=== PATIENT | female | born 1995 | race Caucasian/White ===

== ENCOUNTER → 2024-07-08 | Outpatient (CLI) | payer SELFPAY ==
[2024-07-08 16:05] LABS: Absolute Lymphocyte Count 2.31 X10^3/uL (0.83-4.51); Absolute Neutrophil Count 4.4 X10^3/uL (2.0-7.7); Basophil# 0.05 X10^3/uL; Basophil% 0.7 % (0-1); Eosinophil# 0.14 X10^3/uL; Eosinophils% 1.8 % (0-5); Hemoglobin 11.6 g/dL (12.0-15.0); Lymphocyte # 2.31 X10^3/ul (0.83-4.51); Lymphocyte % 30.4 % (19-41); Mean Corp Hgb Conc 32.2 g/dL (32-36); Mean Corpuscular Hgb 29.6 pg (27.0-32.0); Mean Corpuscular Volume 91.8 fL (81-99); Mean Platelet Vol. 9.3 fl (6.2-12.0); Monocyte% 9.2 % (0-10); NRBC Flagged by Analyzer 0 % (0-5); Neutrophil # 4.38 X10^3/uL (2.7-7.7); Neutrophil % 57.6 % (47-70); Platelet Count 281 K/mm3 (150-450); RBC Distribution Width CV 13.6 % (11.6-14.6); RBC Distribution Width SD 46.5 fl (35.1-43.9); Red Blood Count 3.92 M/mm3 (4.2-5.4); White Blood Count 7.6 K/mm3 (4.4-11.0)
[2024-07-08 16:20] LABS: Amphetamine Urine VISTA NEGATIVE (<1000 ng/mL); Barbiturate Urine VISTA NEGATIVE (< 200 ng/mL); Benzodiazepine Urine VISTA NEGATIVE (< 200 ng/mL); Cocaine Urine VISTA NEGATIVE (< 300 ng/mL); Ecstacy Urine VISTA NEGATIVE (< 500 ng/mL); Methadone Urine VISTA NEGATIVE (< 300 ng/mL); PCP Urine VISTA NEGATIVE (< 25 ng/mL); THC Urine VISTA POSITIVE (< 50 ng/mL); Vista UDS pH Range 6
[2024-07-08 16:52] LABS: HIV - WCH Non-Reactive (Nonreactive); Hepatitis B Surface Antigen Non-Reactive (Nonreactive); Hepatitis C Antibody Non-Reactive (Nonreactive); Rubella IgG Reactive (Nonreactive); Syphilis Antibodies Non-reactive
[2024-07-12 18:08] LABS: Chlamydia By Nucleic Acid AMP Negative (Negative); Gonococcus By Nucleic Acid AMP Negative (Negative)
== END | disposition home or self-care (01) ==
LOC: WOBLAB 14:07
PROVIDERS: Referring Provider Advanced Practice Midwife; Visit Provider Advanced Practice Midwife
DX: O99.320 Drug use complicating pregnancy, unspecified trimester (principal); F19.19 Other psychoactive substance abuse with unspecified psychoactive substance-induced disorder; Z3A.00 Weeks of gestation of pregnancy not specified
CPT/HCPCS: 36415; 80307; 85025; 86703; 86762; 86780; 86803; 86850; 86900; 86901; 87077; 87086; 87088; 87186; 87340; 87491; 87591

== ENCOUNTER → 2024-09-27 | Outpatient (CLI) | payer SELFPAY ==
--- NOTE | 2024-09-27 07:52 | US_ITS ---
STUDY: SECOND AND THIRD TRIMESTER OBSTETRICAL ULTRASOUND REASON FOR EXAM: Female, 29 years old Anatomy Ultrasound LMP: May 04, 2024. TECHNIQUE: Transabdominal and Transvaginal TECHNICAL QUALITY: Adequate. PRIOR ULTRASOUND: None. FINDINGS: There is a single intrauterine fetus. The fetus is in a breech presentation. There is demonstrated cardiac activity with a heart rate of 145 bpm. There is a normal amniotic fluid volume. The largest amniotic fluid pocket measures 5.5 cm. The amniotic fluid index (KEITH) is within normal limits. The placenta is anterior in location and is not low lying. There are Grade 0 placental changes. The cervix measures 5 cm in length. The adnexal regions are not visualized. BIOMETRY: BPD: 4.6 cm: 19 weeks, 6 days: 14% HC: 18 cm: 20 weeks, 3 days: 23% AC: 15.84 cm: 21 weeks, 0 days: 47% FL: 3.26 cm: 20 weeks, 1 days: 19% CI: 72% FL/BPD: 71% FL/HC: 18% FL/AC: 21% HC/AC: 1.14 age by current US: 20 weeks, 3 days. LUISITO by current US: February 11, 2025. Estimated weight: 316 grams, +/- 54 grams, 29 %. Age by LMP: 20 weeks, 6 days. LUISITO by LMP: February 08, 2025. ANATOMY: Gender: Male Cranium: Normal lateral ventricles. Normal choroid plexus. Normal cerebellum. Normal cisterna magna. Normal face, nose and lips. Chest: Normal 4-chamber heart. Abdomen/Pelvis: Normal diaphragm. Normal stomach. Normal abdominal wall. Normal cord insertion. Normal 3 vessel cord. Normal kidneys. Normal bladder. Spine: Normal cervical spine. Normal thoracic spine. Normal lumbar spine. Normal sacrum. Extremities: Normal bilateral upper extremities. Normal bilateral lower extremities. IMPRESSION: Single live intrauterine gestation with mean gestational age of 20 weeks and 3 days. Electronically Signed: Angel Nicole MD at 15:07 EST , STUDY: FIRST TRIMESTER OBSTETRICAL ULTRASOUND REASON FOR EXAM: Female, 29 years old. Cervical length. LMP: May 04, 2024 TECHNIQUE: Transvaginal TECHNICAL QUALITY: Adequate. PRIOR ULTRASOUND: None. FINDINGS: The cervical length measures 5 cm. US/OB Anatomy w/ Transvaginal IMPRESSION: Cervical length measures 5 cm. Electronically Signed: Angel Nicole MD at 15:08 EST ,
== END | disposition home or self-care (01) ==
PROVIDERS: Referring Provider Obstetrics & Gynecology; Visit Provider Obstetrics & Gynecology
DX: O09.90 Supervision of high risk pregnancy, unspecified, unspecified trimester (principal); Z3A.00 Weeks of gestation of pregnancy not specified
CPT/HCPCS: 76805; 76817

== ENCOUNTER → 2024-11-08 | Outpatient (CLI) | payer SELFPAY ==
[2024-11-08 17:15] LABS: Absolute Lymphocyte Count 2.93 X10^3/uL (0.83-4.51); Absolute Neutrophil Count 7.6 X10^3/uL (2.0-7.7); Basophil# 0.06 X10^3/uL; Basophil% 0.5 % (0-1); Eosinophil# 0.25 X10^3/uL; Eosinophils% 2.1 % (0-5); Hematocrit 32.1 % (37-47); Hemoglobin 10.4 g/dL (12.0-15.0); Lymphocyte # 2.93 X10^3/ul (0.83-4.51); Lymphocyte % 24.9 % (19-41); Mean Corp Hgb Conc 32.4 g/dL (32-36); Mean Corpuscular Hgb 29.5 pg (27.0-32.0); Mean Corpuscular Volume 90.9 fL (81-99); Mean Platelet Vol. 9.9 fl (6.2-12.0); Monocyte# 0.81 X10^3/uL; Monocyte% 6.9 % (0-10); NRBC Flagged by Analyzer 0 % (0-5); Neutrophil # 7.62 X10^3/uL (2.7-7.7); Neutrophil % 64.8 % (47-70); Platelet Count 266 K/mm3 (150-450); RBC Distribution Width CV 13.3 % (11.6-14.6); RBC Distribution Width SD 43.8 fl (35.1-43.9); Red Blood Count 3.53 M/mm3 (4.2-5.4); White Blood Count 11.8 K/mm3 (4.4-11.0)
[2024-11-08 21:33] LABS: Glucose Challenge Gest 1H 50g 120 mg/dL; HIV Nonreactive (Nonreactive); Syphilis Antibodies Nonreactive (Nonreactive)
[2024-11-08 21:47] LABS: Amphetamine Urine NEGATIVE (<1000 ng/mL); Barbiturate Urine NEGATIVE (< 200 ng/mL); Benzodiazepine Urine NEGATIVE (< 200 ng/mL); Buprenorphine Urine NEGATIVE (< 200 ng/mL); Cocaine Urine NEGATIVE (< 300 ng/mL); Fentanyl, Urine NEGATIVE; Methadone Urine NEGATIVE (< 300 ng/mL); Opiates Urine NEGATIVE (< 300 ng/mL); Oxycodone, Urine NEGATIVE (< 100 ng/mL); PCP Urine NEGATIVE (< 25 ng/mL); THC Urine PREUMTIVE POSITIVE (< 50 ng/mL)
== END | disposition home or self-care (01) ==
LOC: BWCLAB 15:49
PROVIDERS: Nurse Practitioner Women's Health; Referring Provider Advanced Practice Midwife; Visit Provider Advanced Practice Midwife
DX: O09.90 Supervision of high risk pregnancy, unspecified, unspecified trimester (principal); F19.19 Other psychoactive substance abuse with unspecified psychoactive substance-induced disorder; Z3A.00 Weeks of gestation of pregnancy not specified; Z13.1 Encounter for screening for diabetes mellitus; O99.320 Drug use complicating pregnancy, unspecified trimester
CPT/HCPCS: 36415; 80307; 82950; 85025; 86703; 86780

== ENCOUNTER → 2025-01-27 | Outpatient (CLI) | payer SELFPAY ==
--- NOTE | 2025-01-27 18:06 | US_ITS ---
PROCEDURE: OB LIMITED WITH BIOMETRICS 01/27/2025 REASON FOR EXAM: GROWTH TECHNIQUE: High resolution obstetric ultrasound performed using a 2D transducer. Standard views obtained, including biometry, anatomy survey, and Doppler studies. COMPARISON: None FINDINGS Number: 1 Position: Cephalic Placental Position: Anterior Placental Abnormalities: No definite evidence of previa. The cervix to placenta distance was not measured by the technologist. DIMENSIONS: Biparietal Diameter: 8.4 cm/33 weeks 5 days +/-22 days/0.29 percentile Head Circumference: 31.0 cm/34 weeks 4 days +/-21 days/0.16 percentile Abdominal Circumference: 32.3 cm/36 weeks 2 days +/-21 days/14.56 percentile Femur Length: 6.9 cm/35 weeks 2 days +/-21 days/2.61 percentile ESTIMATED WEIGHT: 2729 g +/-409 g ESTIMATED WEIGHT PERCENTILE (24+ weeks): 9.84% ESTIMATED GESTATIONAL AGE: Baseline: 38 weeks 2 days By Ultrasound: 34 weeks 5 days ESTIMATED DATE OF DELIVERY: Baseline: 02/08/2025 By Ultrasound: 03/05/2025 BIOPHYSICAL ASSESSMENT: Amniotic Fluid Volume: Subjectively normal. Amniotic Fluid Index: 10.5 (8-24 cm normal range) Cardiac Motion: 129 beats per minute (average) Trunk and Limb Motion: Not documented by technologist MATERNAL ANATOMY: Adnexa: Both maternal ovaries are visualized and unremarkable. Cervical Length (if measured): Not visualized per technologist report This exam does not specifically evaluate the anatomy. US/OB Limited With Biometrics IMPRESSION: 1. Single living intrauterine with estimated gestational age of 34 w eeks 5 days by ultrasound, which is discordant with the estimated gestational age of 38 weeks 2 days by LMP. 2. Estimated weight percentile of 9.84%, concerning for intrauterine will wth restriction. Incorrect dates could also account for this finding. Recommend further evaluation, to include Doppler ult rasound evaluation of the umbilical artery. 3. Normal KEITH of 10.5 cm. Of note, comparison exams were not made available to the Radiologist at the [place] [facility] of this dictation. Reading Location: [facility]
== END | disposition home or self-care (01) ==
PROVIDERS: Visit Provider Obstetrics & Gynecology
DX: Z34.93 Encounter for supervision of normal pregnancy, unspecified, third trimester (principal)
CPT/HCPCS: 76816

== ENCOUNTER 2025-02-01 13:25 | Inpatient (IN) | payer SELFPAY ==
[2025-02-01 13:37] VITALS: BP 141/77; PULSE 80
[2025-02-01 14:12] VITALS: BMI 27.8
--- NOTE | 2025-02-01 14:17 | PCM.HP.OB ---
HPI - General General Date of Admission: 02/01/25 Date of Service: 02/01/25 HPI Narrative ABAD PEOPLES, is a 29 F 39.0 weeks gestation who presents to unit for IOL for IUGR per US. EFW at 9%. GBS pos. Maternal Data Information LUISITO Calculator Estimated Delivery Date Method Current WG Current Estimate 02/08/25 LMP (Uncertain) 39w 0d Other Estimates 02/06/25 Ultrasound #1 39w 2d Final LUISITO: 02/08/25 Final LUISITO Source: US >20 weeks Gestational age: 39.0 PFSH PFSH Medical History (Updated 02/01/25 @ 16:05 by Diana Avitia CNM) History of prior with IUGR Home Medications ?Medication ?Instructions ?Recorded ?Last Taken ?Type docosahexaenoic acid 200 mg mg PO supplement 06/25/24 Unknown History capsule ( DHA) ondansetron 4 mg disintegrating 4 mg PO Q8H PRN nausea and 11/08/24 02/01/25 Rx tablet vomiting #30 tabs famotidine 20 mg tablet (Pepcid) 20 mg PO QHS antacid #30 tabs 01/24/25 01/31/25 Rx calcium phosphate,dibasic 77 tab PO vitamin 02/01/25 01/31/25 History mg-vitamin D3 400 unit tablet omega 6-feh-yhd-fish oil 1,200 mg cap PO supplement 02/01/25 01/31/25 History (144 mg-216 mg) capsule (Fish Oil) Allergy/AdvReac Type Severity Reaction Status Date / Time No Known Allergies Allergy Verified 02/01/25 13:27 Family History Grandmother Colon cancer Grandfather Brain cancer Surgical History H/O wisdom tooth extraction Social History adopted: No household members: significant other current occupational status: employed 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 current occupational exposures/hazards: No pets and animals: Yes pets and animals: farm animals history of recent travel: Yes ( - May 2024) sexually active: Yes Smoking Status: Former smoker quit date: 12/15/23 alcohol intake: former year quit: 2022 details: December 14 substance use type: marijuana and other well-balanced diet: daily or most days caffeine: Yes Type: coffee eating out: rarely or never during the past year weight has: remained stable what type of physical activity do you participate in: none garcia/confucianist: Church seatbelt use: sometimes do you feel safe at home: Yes additional social history: BF: Dave - [employer] ([employer]) History 1 Elective abortions Hx Para 0 Spontaneous abortions Hx # Term Pregnancies Ectopic pregnancies Hx # Pregnancies Multiple births # of living children 0 Visit Details Expected Delivery Route/Plan Labor Preferences- CB/BF classes: discussed labor support person: Dave labor intervention preferences: minimal pain management options preferred: none cut cord/dad catch: yes : yes PP control planned: [] discussed possible routes of delivery and associated risks: [] special requests: [] Plans Covid status: [] Flu vaccine: [] Tdap vaccine: declined Rhogam: NA LARC form signed: yes movement and labor precautions reviewed. Problem list reviewed and updated with the most current plan of care details and appropriate orders placed. Relevant counseling for the gestational age provided. Continue routine care and follow up unless otherwise noted in visit notes/problem list details OB Flowsheet Initial Weight: 119 lb Date <del>?</del> EGA Weight BP Urine Prot <del>?</del> Glucose FHR FuHt Pres Dilation <del>?</del> Effaced St Visit Note 07/08/24 <del>?</del> 9w 2d 119 lb (+0 oz) 108/68 <del>?</del> 163 <del>?</del> KW- CRL cons with dates. Declines NIPT today 08/09/24 <del>?</del> 13w 6d 126 lb 2 oz (+7 lb 2 oz) 114/74 Negative <del>?</del> Negative 145 <del>?</del> SM- no vb cramping 09/27/24 <del>?</del> 20w 6d 140 lb 4 oz (+21 lb 4 oz) 117/74 Negative <del>?</del> Negative 144 <del>?</del> JV- no lof, vaginal bleeding, or cramping. anatomy scan was done today and pending. 10/25/24 <del>?</del> 24w 6d 142 lb 8 oz (+23 lb 8 oz) 107/69 Negative <del>?</del> Negative 125 24 <del>?</del> KW- no vb/lof/ctx. good fm. desires fresh test. 28 week labs discussed. 11/08/24 <del>?</del> 26w 6d 144 lb 4 oz (+25 lb 4 oz) 108/72 Negative <del>?</del> Negative 146 26 <del>?</del> MH-No VB. Good FM. Larc done. 28 wk labs pending. Still having some nausea, zofran refilled. 11/29/24 <del>?</del> 29w 6d 148 lb 4 oz (+29 lb 4 oz) 105/70 Negative <del>?</del> Negative 123 29 <del>?</del> JV- declines tdap, still vomiting daily. but gaining weight. 12/13/24 <del>?</del> 31w 6d 149 lb 4 oz (+30 lb 4 oz) 101/66 Negative <del>?</del> Negative 130 32 <del>?</del> KW- no vb/lof/ctx. good fm. wrist splints for wrist pain. 12/28/24 <del>?</del> 34w 0d 149 lb 2 oz (+30 lb 2 oz) 105/67 Negative <del>?</del> Negative 125 34 <del>?</del> SM- no vb lof good fm no reugalr ctx reviewed precautions and preferences 01/10/25 <del>?</del> 35w 6d 149 lb (+30 lb) 106/72 Negative <del>?</del> Negative 130 36 <del>?</del> KW- GBS in urine. no vb/lof/ctx. good fm. 01/17/25 <del>?</del> 36w 6d 150 lb (+31 lb) 109/73 Negative <del>?</del> Negative 130 37 <del>?</del> KW- no vb/lof/ctx. good fm. declines vag exam today. 01/24/25 <del>?</del> 37w 6d 152 lb 2 oz (+33 lb 2 oz) 113/75 Negative <del>?</del> Negative 135 35 <del>?</del> JV- patient declines pelvic exam. ordering growth scan for position, fluid, and growth. NST FHR Rate Baby A Baseline: 130 Variability:: Moderate Accelerations:: 15 x 15 Decelerations:: None NST Reactive:: Yes FHR Category:: Category I Uterine Activity:: irregular ROS Constitutional Constitutional: Denies change in weight, fatigue, fever(s), headache(s), poor appetite or weakness Eyes Eyes: Denies blurry vision, change in vision, floaters, seeing flashes or spots in vision ENT HEENT: Denies dizziness, headache(s), loss taste/smell or sore throat Cardiovascular Cardiovascular: Denies chest pain, dizziness, dyspnea, irregular heart rhythm, lightheadedness, palpitations or rapid heart rate Respiratory/Chest Respiratory/Chest: Denies change in mental status, chest tightness, cough, dyspnea or breast pain Gastrointestinal Gastrointestinal: Denies anorexia, chewing difficulty, constipation, diarrhea or weight changes Genitourinary Genitourinary: Denies difficulty urinating, dysuria, flank pain, genital pain, urinary frequency or urinary urgency Musculoskeletal Musculoskeletal: Denies back pain, difficulty walking, extremity pain, joint pain, muscle cramps or muscle weakness Integumentary Integumentary: Denies lesions or unusual bruising Neurologic Neurologic: Denies abnormal movements, abnormal speech, dizziness, numbness, seizure-like activity, syncope or weakness Psychiatric Psychiatric: Denies behavioral changes, change in appetite, confusion, depression, homicidal ideation, suicidal ideation or suicidal thoughts Endocrine Endocrinology: Denies excessive sweating, polydipsia or polyuria Hematologic/Lymphatic Hematologic/Lymphatic: Denies anemia Allergic/Immunologic Allergic/Immunologic: Denies itchy eyes, lip swelling, throat swelling, tongue swelling or wheezing Vital Signs Vital Signs Vital Signs: 02/01/25 13:37 02/01/25 13:37 Pulse Rate 80 Blood Pressure 141/77 H BP Systolic 141 BP Diastolic 77 Weight Weight: 152 lb 8 oz Body Mass Index (BMI) 27.8 Physical Exam Const alert, oriented x3 and no apparent distress General Appearance: cooperative Orientation / Consciousness: awake HEENT normocephalic Neck full ROM Lymph Lymphatic: no lymphadenopathy noted Chest inspection of chest normal Resp normal respiratory effort and normal air movement Effort and Inspection: able to speak in complete sentences and symmetric chest movement GI soft to palpation and non-tender Inspection: gravid Palpation: soft; Negative for tender external exam normal Back/Spine normal to inspection Extremity normal to inspection and full ROM Skin no rashes or lesions noted Psych mental status grossly normal Appearance: grossly normal Speech: normal speech Labs Labs Labs: Blood Type A POSITIVE Antibody Screen NEGATIVE Hct 27.3 % (37-47) L Hgb 8.7 g/dL (12.0-15.0) L Obstetrics Ultrasound Syphilis Total Ab Nonreactive (Nonreactive) Rubella IgG Antibody Reactive (Nonreactive) Hep Bs Antigen Non-Reactive (Nonreactive) Hepatitis C Antibody Non-Reactive (Nonreactive) Chlamydia DNA (CARLY) Negative (Negative) N.gonorrhoeae DNA (CARLY) Negative (Negative) HIV 1&2 Antibody Nonreactive (Nonreactive) Glucose 1 Hr 50 gm 120 mg/dL Assessment & Plan (1) Encounter for induction of labor: COMMENT: IUGR PLAN: Patient presents IOL, plan management for with cytotec/braun/pitocin/AROM. Pain management: plans epidural. GBS positive-PCN. Management of any complications: see list I have reviewed the [facility] and made any clinically relevant updates. Dr Rodriguez aware of assessment/plan and admission. agrees with above (2) Uterine size date discrepancy: (3) Anemia affecting : COMMENT: OTC iron (4) GBS (group B streptococcus) UTI complicating : QUALIFIERS: Trimester: second trimester Qualified Code(s): O23.42 - Unspecified infection of urinary tract in , second trimester; B95.1 - Streptococcus, group B, as the cause of diseases classified elsewhere COMMENT: not high enough to treat. will need treated in labor (5) Supervision of high-risk : QUALIFIERS: Trimester: second trimester Qualified Code(s): O09.92 - Supervision of high risk , unspecified, second trimester COMMENT: PRR, , LUISITO 02/08/25, magdi mayes BF: Dave (6) : QUALIFIERS: Weeks of gestation: 37 weeks Qualified Code(s): Z3A.37 - 37 weeks gestation of COMMENT: nl anatomy, Discussed genetic/carrier testing - declines (7) Drug use: COMMENT: Marijuana - Last Use: April 2024, Not currently using Informed pt of random drug testing during , positive at [facility]. 11/08/24: Charges/Coding Multi Select Codes Urinary/Genital Urinary/Genital CPT Codes: No Charge
[2025-02-01 14:45] LABS: Absolute Lymphocyte Count 2.06 X10^3/uL (0.83-4.51); Absolute Neutrophil Count 6.8 X10^3/uL (2.0-7.7); Basophil# 0.06 X10^3/uL; Basophil% 0.6 % (0-1); Eosinophil# 0.12 X10^3/uL; Eosinophils% 1.2 % (0-5); Hematocrit 27.3 % (37-47); Hemoglobin 8.7 g/dL (12.0-15.0); Lymphocyte # 2.06 X10^3/ul (0.83-4.51); Lymphocyte % 21.4 % (19-41); Mean Corp Hgb Conc 31.9 g/dL (32-36); Mean Corpuscular Hgb 25.5 pg (27.0-32.0); Mean Corpuscular Volume 80.1 fL (81-99); Mean Platelet Vol. 10.8 fl (6.2-12.0); Monocyte# 0.57 X10^3/uL; Monocyte% 5.9 % (0-10); NRBC Flagged by Analyzer 0 % (0-5); Neutrophil # 6.81 X10^3/uL (2.7-7.7); Neutrophil % 70.7 % (47-70); Platelet Count 246 K/mm3 (150-450); RBC Distribution Width CV 14.6 % (11.6-14.6); RBC Distribution Width SD 42.8 fl (35.1-43.9); Red Blood Count 3.41 M/mm3 (4.2-5.4); White Blood Count 9.6 K/mm3 (4.4-11.0)
[2025-02-01] MEDS: miSOPROStol 25 MCG TABLET VAGINAL ×2 (15:54→20:06)
[2025-02-01 15:56] LABS: Syphilis Antibodies Nonreactive (Nonreactive)
[2025-02-01 16:29] VITALS: PULSE 69; O2SAT 98
[2025-02-01 17:07] LABS: Amphetamine Urine NEGATIVE (<1000 ng/mL); Barbiturate Urine NEGATIVE (< 200 ng/mL); Benzodiazepine Urine NEGATIVE (< 200 ng/mL); Cocaine Urine NEGATIVE (< 300 ng/mL); Methadone Urine NEGATIVE (< 300 ng/mL); Opiates Urine NEGATIVE (< 300 ng/mL); PCP Urine NEGATIVE (< 25 ng/mL); THC Urine PRESUMPTIVE POSITIVE (< 50 ng/mL)
[2025-02-01] MEDS: Mag Hydrox/Al Hydrox/Simeth 30 ML UDC PO (19:23)
[2025-02-01 20:03] VITALS: BP 123/97; PULSE 65; RESP 16; TEMP 37.1
[2025-02-01] MEDS: Lactated Ringers 1,000 ML 50 ML IV (22:10)
[2025-02-01] MEDS: Penicillin G Pot 5,000,000 UNITS in 0.9% Normal Saline (100mL MB+) 100 ML 150 UNITS IV (22:10)
[2025-02-01] MEDS: LACTATED RINGERS 500 ML 999 ML IV (22:53)
[2025-02-01] MEDS: proCHLORPERazine 10 MG/2 ML Vial IV (23:16)
[2025-02-01] MEDS: 0.9% Saline Lock 10 ML Syringe IV (23:16)
[2025-02-02] VITALS (62 sets, daily range): BP systolic 110–172; BP diastolic 62–100; PULSE 56–107; RESP 15–16; TEMP 36.3–37.1; O2SAT 89–100
[2025-02-02] MEDS: miSOPROStol 25 MCG TABLET VAGINAL ×2 (00:08→04:07)
[2025-02-02] MEDS: Penicillin G 3,000,000 Units 50 ML 100 UNITS IV ×5 (02:12→20:01)
[2025-02-02] MEDS: 0.9% Saline Lock 10 ML Syringe IV ×4 (02:12→20:24)
[2025-02-02] MEDS: Ondansetron 4 MG/2 ML Vial IV ×4 (06:28→23:36)
[2025-02-02] MEDS: 0.9% Normal Saline Single 100 ML IV.SOLN. INTRA-UTER (07:30)
[2025-02-02] MEDS: Lactated Ringers 1,000 ML 999 ML IV ×2 (07:48→23:33)
--- NOTE | 2025-02-02 08:30 | PCM.PN.BLA ---
Progress Note Progress Note patient is sitting up in bed. She consents to a braun balloon current tracing: FHT: Moderate variability reactive no decelerations category I tracing [place]: uterine irritability, unable to count actual Contractions -/-2, braun balloon placed and inflated with 30 cc A/P: patient wants epidural- start bolus now plan for pit then arom when ready
[2025-02-02] MEDS: fentaNYL-bupivacaine (epidural) 100 ML BAG EPIDURAL ×4 (08:52→22:47)
[2025-02-02] MEDS: Oxytocin 15 Units/NS 250ml 15 UNITS/250 ML IV.SOLN 2 UNITS IV (09:05)
[2025-02-02] MEDS: Mag Hydrox/Al Hydrox/Simeth 30 ML UDC PO ×2 (09:06→20:13)
[2025-02-02] MEDS: Lactated Ringers 1,000 ML 200 ML IV ×2 (12:53→17:29)
--- NOTE | 2025-02-02 13:21 | PN_ITS ---
Progress Note patient is comfortable with epidural. she consents to AROM. current tracing: FHT: 145 Moderate variability reactive, occasional variable and late decelerations category II tracing [place]: irregular Contractions, not picking up consistently cx : /-2, thick meconium stained fluid present reviewed tracing abnormalities since last note: decels are new A/P: IUGR @ 39 weeks 1 day if position change does not show improvement in contraction frequency or if variable decelerations become regular will recommend IUPC with amnioinfusion.
[2025-02-02] MEDS: LACTATED RINGERS 500 ML 999 ML IV ×2 (18:54→21:16)
[2025-02-02] MEDS: proCHLORPERazine 10 MG/2 ML Vial IV (20:24)
--- NOTE | 2025-02-02 21:06 | PCM.PN.BLA ---
Progress Note patient is painful constantly on the left hip. Side lying release and other position changes not helping. Anesthesia paged. current tracing: FHT: Moderate variability reactive no decelerations- currently category I tracing [place]: q2min Contractions cx: /0 FSE and IUPC in place Sharon from anesthesia in and notices that the epidural has pulled loose and will replace the epidural A/P: plan to replace epidural and then try side lying release
[2025-02-02] MEDS: Amnioinfusion- 0.9% NS 1,000 ML IV.SOLN. 1000 ML INTRA-UTER (21:55)
[2025-02-02] MEDS: Methylergonovine 0.2 MG/ML Ampul IM (23:19)
[2025-02-02] MEDS: miSOPROStol 200 MCG Tablet 1000 MCG RC (23:21)
[2025-02-02] MEDS: Carboprost Tromethamine 250 MCG/ML Ampul IM (23:23)
[2025-02-02] MEDS: Oxytocin 15 Units/NS 250ml 15 UNITS/250 ML IV.SOLN 999 UNITS IV (23:27)
[2025-02-02] MEDS: Cefazolin 2 GM in 0.9% Normal Saline (100mL Bag) 100 ML IV (23:43)
[2025-02-02] MEDS: TRANEXAMIC ACID 1,000 MG in 0.9% Normal Saline (100mL Bag) 100 ML 440 MG IV (23:45)
[2025-02-02 23:49] LABS: Absolute Lymphocyte Count 1.34 X10^3/uL (0.83-4.51); Absolute Neutrophil Count 13.8 X10^3/uL (2.0-7.7); Basophil# 0.02 X10^3/uL; Basophil% 0.1 % (0-1); Eosinophil# 0.01 X10^3/uL; Eosinophils% 0.1 % (0-5); Hematocrit 25.4 % (37-47); Hemoglobin 8.2 g/dL (12.0-15.0); Lymphocyte # 1.34 X10^3/ul (0.83-4.51); Lymphocyte % 8.3 % (19-41); Mean Corp Hgb Conc 32.3 g/dL (32-36); Mean Corpuscular Hgb 25.4 pg (27.0-32.0); Mean Corpuscular Volume 78.6 fL (81-99); Mean Platelet Vol. 10.6 fl (6.2-12.0); Monocyte# 0.83 X10^3/uL; Monocyte% 5.1 % (0-10); NRBC Flagged by Analyzer 0 % (0-5); Neutrophil # 13.81 X10^3/uL (2.7-7.7); Neutrophil % 85.7 % (47-70); Platelet Count 224 K/mm3 (150-450); RBC Distribution Width CV 14.6 % (11.6-14.6); Red Blood Count 3.23 M/mm3 (4.2-5.4); White Blood Count 16.1 K/mm3 (4.4-11.0)
--- NOTE | 2025-02-02 23:54 | PLAC_PTH ---
PATIENT: ABAD PEOPLES LOC: [facility] U#:[id number] AGE/SX: 29/F ROOM: WP016 RE02/01/[address]: Dr. Ting Espinoza DO : 1995 BED: 1 DIS: 02/04/2025 SPEC #: [id number] RECD: 02/03/25 00:11 STATUS: ROCAEL OSCAR #: [id number] DAO: 02/02/25 23:[address]: Ting Espinoza DEPT: SURGICAL PATHOLOGY RECD BY: Terrance Niño ENTERED: 02/03/25 07:33 SP TYPE: PLACENTA OT DR: No Primary Care Phys Tissues: A - Placenta, NOS Procedures: Surgery Specimen Level V HEADER OPERATION: Delivery PRE-OP DIAGNOSIS: IUGR TISSUE SUBMITTED: A- Placenta MICROSCOPIC DIAGNOSIS A. Placenta, delivery: * Eccentrically inserted and trivascular umbilical cord without active inflammation * Marginally inserted membranes without active inflammation * Mature (third trimester) placenta without active inflammation and with a transmural area of infarction with thinning of the placental disk MICROSCOPIC DESCRIPTION Slides are reviewed. GROSS DESCRIPTION A. Received in formalin in a container labeled with the patient's name, date of , and with no further designation is a 19.3 x 18.0 cm douglas and discoid placenta with a thickness ranging from 0.6 to 3.2 cm. There is a trimmed weight of 615.8 g. The eccentrically located mora-yellow umbilical cord has 3 vessels and is 55 cm in length X 1.2 cm in diameter. There are approximately 2 coils per 10 cm. The mora membranes exhibit a 100% marginal insertion point. The surface is burris-blue with thin, prominent vasculature. The maternal surface has red-burris cotyledons that appear predominantly complete with an abundance of scattered calcifications. There is an ill-defined, 12.0 x 3.0 x 2.4 cm area of red-brown, layered, and adherent blood clot material at the periphery. The hemorrhagic area and scattered calcifications appear to comprise approximately 10% of the maternal surface. Serial sections have a hemorrhagic area with white-mora, rubbery surfaces. Sectioning of the thin area with a thickness of approximately 0.6 cm exhibits rubbery and focally calcified surfaces. The remaining surfaces are maroon and spongy. Manufacturing Manager sections:A1. Umbilical cord and membrane rollA2. Full-thickness section with scattered calcificationsA3. Full-thickness section with rubbery and hemorrhagic focusA4. Full-thickness sections x 2 area of thin placental tissueA5. Manufacturing Manager full-thickness section [facility] 02-03-2025 CPT:94748
--- NOTE | 2025-02-02 23:55 | OB.VAGDELI_ITS ---
Assessment & Plan (1) Encounter for induction of labor: COMMENT: IUGR (2) GBS (group B streptococcus) UTI complicating : QUALIFIERS: Trimester: second trimester Qualified Code(s): O23.42 - Unspecified infection of urinary tract in , second trimester; B95.1 - Streptococcus, group B, as the cause of diseases classified elsewhere COMMENT: not high enough to treat. will need treated in labor (3) Supervision of high-risk : QUALIFIERS: Trimester: second trimester Qualified Code(s): O09.92 - Supervision of high risk , unspecified, second trimester COMMENT: PRR, , LUISITO 02/08/25, magdi mayes BF: Dave (4) : QUALIFIERS: Weeks of gestation: 37 weeks Qualified Code(s): Z3A.37 - 37 weeks gestation of COMMENT: nl anatomy, Discussed genetic/carrier testing - declines (5) Intrauterine growth restriction (IUGR) affecting care of mother: Maternal Data Information LUISITO Calculator Estimated Delivery Date Method Current WG Current Estimate 02/08/25 LMP (Uncertain) 39w 2d Other Estimates 02/06/25 Ultrasound #1 39w 4d Final LUISITO Source: LMP Gestational age: 39 weeks 1 day Doctor Who Attended Delivery: Roseann Gonzales Vaginal Delivery Maternal Presentation Maternal Presentation: Medically Indicated Induction Type of Induction: Pitocin, Snyder Bulb, Amniotomy and Cytotec Medical Reason for Induction: Other (intrauterine growth restriction (9th%) ) Vaginal Delivery Information Procedure Performed: Spontaneous Vaginal Delivery Surgeon/Practitioner: Ting Espinoza Date of Procedure: 02/02/25 Pre-Procedure Diagnosis: 29 y/o @ 39 weeks 1 day, IUGR Post-Procedure Diagnosis: 29 y/o @ 39 weeks 1 day, IUGR, post hemorrhage Type of anesthesia: Epidural Drain(s): Uterine Tamponade Balloon Estimated Blood Loss: 1000cc Time of Delivery: 23:08 Findings Description of procedure: Patient began pushing and delivered the head in the SRAVANI presentation. The head was delivered atraumatically and a loose nuchal cord ?1 was identified and easily reduced over the infant's head. The anterior and posterior shoulders delivered without complication followed by the rest of the infant and the infant was placed on the maternal abdomen. Delayed cord clamping was employed for approximately 60 seconds. Cord was clamped and cut and gentle traction was applied to the cord and the placenta delivered spontaneously immediately following it was noted to be intact with three-vessel cord. The perineum and vagina were inspected and noted to have no laceration. EBL was 1000cc. Patient and tolerated delivery well. The hemorrhage was managed with Methergine, Hemabate, TXA, Cytotec, uterine massage, uterine curettage, and Shameka suction system. The device was inserted into the uterus manually. The cervical balloon was inflated with 60cc NS. The suction was set at 80mmhg then 90mmhg and ultimately stopped the bleeding at this pressure. The device currently being activated and monitored. The device will be left to wall suction for an hour and re-evaluated. Ancef 2 grams was also given during this time. Procedure findings: viable male Ledger , controlled hemorrhage Presentation: Vertex Amniotic Membrane Rupture Type: Artificial Amniotic Fluid Description: Moderate meconium Placental Delivery Description: Expressed Placenta Disposition: [facility] Specimen collected: Yes Description of specimen(s) removed: placenta Cord Vessel Description: 3 Vessels Cord Entanglement: Around neck x 1, loose Nuchal Cord Compression: Without compression Infant A Gender: Male (1 minute): 8 (5 minute): 9 Delayed Cord Clamping: Yes Vertical [employer] executive director: No Post Vaginal Deli Medications given after delivery: IV Pitocin, IM Methergin, IM Hemabate and Other (cytotec, TXA) Episiotomy Description: None Laceration: None Complication Complications: Yes Complication Details: hemorrhage, controlled Multi Select Codes Urinary/Genital Urinary/Genital CPT Codes: 18102 Vaginal Delivery [facility]
[2025-02-03] VITALS (65 sets, daily range): BP systolic 112–173; BP diastolic 62–95; PULSE 30–122; RESP 16; TEMP 36.2–37.9; O2SAT 78–100
--- NOTE | 2025-02-03 00:08 | DCINST_ITS ---
Discharge Instructions Diet Discharge Diet: No restrictions DC O2, CPAP, BIPAP needs Home O2 Discharge instructions: No Dressing / Incision Discharge Activity: Return to Normal Activity, May Not Drive (while taking narcotic pain medications.) and May Shower May resume sexual activity in: 4-6 weeks Dressing / Incision Call your doctor if your incision/area has: Continuous Slow Oozing, Sudden Increased Bleeding, Increased Pain/ Swelling, Increased Redness and Foul Smelling Discharge Follow Up Care Please Follow Up With: Ting Espinoza DO When: Call [phone] to make an appointment with your doctor in 6 weeks. If you had elevated blood pressure or 4th degree laceration, you will need to be seen in 2 weeks. Test Results: Test results from this visit will be discussed in further detail at your follow- up appointment, if applicable. Discharge Plan Admission Admit Date/Time: 02/01/25 13:25 Attending Provider: Ting Espinoza Primary Care Provider: Care Physician,No Primary Discharge Orders/Prescriptions Prescriptions: No Action DHA 200 mg capsule PO ondansetron 4 mg tablet,disintegrating 4 mg PO Q8H PRN (Reason: nausea and vomiting) Qty: 30 3RF famotidine [Pepcid] 20 mg tablet 20 mg PO QHS Qty: 30 0RF calcium phos,dibas-vitamin D3 77-400 mg-unit tablet PO omega 4-zgg-wzn-fish oil [Fish Oil] 1,200 (144-216) mg capsule PO Referrals / Follow Up: Care Physician,No Primary [Primary Care Provider] -
[2025-02-03 00:26] LABS: International Normalized Ratio 1.1; Prothrombin Time (Protime)PT. 14.2 SECONDS (11.7-14.9)
[2025-02-03 00:27] LABS: Fibrinogen 438 mg/dl (203-444); Partial Thromboplast Time 26.8 Seconds (24.1-36.2)
[2025-02-03] MEDS: Metoclopramide 10 MG/2 ML Vial IV (00:35)
[2025-02-03] MEDS: Loperamide 2 MG Capsule PO ×2 (00:49→09:17)
[2025-02-03] MEDS: Lactated Ringers 1,000 ML 150 ML IV ×2 (00:50→06:34)
[2025-02-03 00:54] LABS: Pathology Specimen OB SEE PATHOLOGY REPORT
[2025-02-03 02:18] LABS: Hematocrit 24.1 % (37-47); Hemoglobin 7.7 g/dL (12.0-15.0); Mean Corpuscular Hgb 25.2 pg (27.0-32.0); Mean Corpuscular Volume 78.8 fL (81-99); Mean Platelet Vol. 10.6 fl (6.2-12.0); Platelet Count 231 K/mm3 (150-450); RBC Distribution Width CV 14.7 % (11.6-14.6); RBC Distribution Width SD 42.4 fl (35.1-43.9); Red Blood Count 3.06 M/mm3 (4.2-5.4); White Blood Count 22.3 K/mm3 (4.4-11.0)
--- NOTE | 2025-02-03 05:01 | NURSING ---
Pt had a 1000ml PPH at delivery. Pt was given Methergine, hemabate, cytotec, pitocin, and TXA to control bleeding, see MAR and provider note for details. Shameka was placed by Dr. Espinoza at 2329 and inflated with 60ml saline, suction was turned up to 90. Okay per provider to leave pt epidural infusing while the Shameka is in place. Shameka suction decreased to 80 at 0029. Suction turned off and Shameka deflated at 0302. Shameka was removed at 332. Bleeding was scant and fundus was 3 above, firm, and midline.
[2025-02-03] MEDS: Ibuprofen 600 MG Tablet PO ×3 (06:34→21:13)
--- NOTE | 2025-02-03 07:10 | PCM.PN.OB ---
Subjective Subjective Patient doing well without complaints. Tolerating PO. Ambulating and voiding without difficulty. feeding well. Denies chest pain, shortness of breath, calf pain/swelling, fevers, chills, lightheadedness. Objective Data Objective Data Vital Signs: Vital Signs Temp Pulse Resp BP Pulse Ox O2 Del Method 98.3 F 86 16 130/75 H 97 Room Air 02/03/25 06:13 02/03/25 06:13 02/03/25 06:13 02/03/25 06:13 02/03/25 06:13 02/03/25 06:13 Oxygen Delivery Method Room Air Weight: 152 lb 8 oz Body Mass Index (BMI) 27.8 Intake & Output: Intake and Output for Last 24 Hours 02/01/25 02/02/25 02/03/25 23:59 23:59 23:59 Intake Total 675.83 / 675.83 5488.33 / 5598.33 2080 / 2080 Output Total 1650 / 1650 250 / 250 Balance 675.83 / 675.83 3838.33 / 3948.33 1830 / 1830 Lab / Micro Data 02/03/25 07:02 Labs: Laboratory Results - last 24 hr 02/01/25 14:20: Crossmatch See Detail 02/02/25 23:35: WBC 16.1 H, RBC 3.23 L, Hgb 8.2 L, Hct 25.4 L, MCV 78.6 L, MCH 25.4 L, MCHC 32.3, RDW Std Deviation 42.0, RDW Coeff of Karlos 14.6, Plt Count 224, MPV 10.6, Immature Gran % (Auto) 0.700, Neut % (Auto) 85.7 H, Lymph % (Auto) 8.3 L, [place] % (Auto) 5.1, Eos % (Auto) 0.1, Baso % (Auto) 0.1, Absolute Neuts (auto) 13.8 H, Absolute Lymphs (auto) 1.34, Nucleated RBC % 0, PT Cancelled, INR Cancelled, APTT Cancelled, Fibrinogen Cancelled 02/03/25 02:08: WBC 22.3 H, RBC 3.06 L, Hgb 7.7 L, Hct 24.1 L, MCV 78.8 L, MCH 25.2 L, MCHC 32.0, RDW Std Deviation 42.4, RDW Coeff of Karlos 14.7 H, Plt Count 231, MPV 10.6 02/03/25 23:55: PT 14.2, INR 1.1, APTT 26.8, Fibrinogen 438 ROS Constitutional Constitutional: Reports systems reviewed and no addt'l complaints, except as documented Cardiovascular Cardiovascular: Reports systems reviewed and no addt'l complaints, except as documented Respiratory/Chest Respiratory/Chest: Reports systems reviewed and no addt'l complaints, except as documented Gastrointestinal Gastrointestinal: Reports systems reviewed and no addt'l complaints, except as documented Physical Exam Const alert, oriented x3 and no apparent distress HEENT Head and Scalp: atraumatic Resp normal respiratory effort GI soft to palpation and non-tender Bimanual Exam - Vag & Uterus: uterus non-tender Uterus Palpation: uterus fundus firm (below Umbilicus) Assessment & Plan (1) Vaginal delivery: (2) hemorrhage: (3) Acute on chronic blood loss anemia: COMMENT: transfuse 1 unit PRBC PLAN: Plan s/p PPD # 1 1. routine post delivery care 2. breast feeding- support given 3. rh positive 4. rubella immune repeat Hg dropped- transfuse 1 unite
[2025-02-03 07:17] LABS: Basophil# 0.04 X10^3/uL; Basophil% 0.2 % (0-1); Eosinophil# 0.02 X10^3/uL; Eosinophils% 0.1 % (0-5); Hematocrit 20.4 % (37-47); Hemoglobin 6.6 g/dL (12.0-15.0); Lymphocyte % 11.9 % (19-41); Mean Corp Hgb Conc 32.4 g/dL (32-36); Mean Corpuscular Hgb 25.4 pg (27.0-32.0); Mean Corpuscular Volume 78.5 fL (81-99); Mean Platelet Vol. 10.4 fl (6.2-12.0); Monocyte# 1.21 X10^3/uL; Monocyte% 6.5 % (0-10); NRBC Flagged by Analyzer 0 % (0-5); Neutrophil # 14.95 X10^3/uL (2.7-7.7); Neutrophil % 80.7 % (47-70); Platelet Count 203 K/mm3 (150-450); RBC Distribution Width CV 14.8 % (11.6-14.6); RBC Distribution Width SD 42.3 fl (35.1-43.9); White Blood Count 18.5 K/mm3 (4.4-11.0)
[2025-02-03] MEDS: Benzocaine/Lanolin/Aloe Vera 85 GM Spray 1 SPRAY TOPICAL (14:40)
[2025-02-03 16:00] LABS: Hematocrit 23.2 % (37-47); Hemoglobin 7.8 g/dL (12.0-15.0)
[2025-02-03] MEDS: Mag Hydrox/Al Hydrox/Simeth 30 ML UDC PO (22:18)
[2025-02-03] MEDS: SimETHICONE 80 MG Chewable Tablet PO (23:52)
[2025-02-04 04:05] VITALS: BP 123/74; PULSE 99; RESP 16; TEMP 36.3; O2SAT 99
[2025-02-04 04:07] VITALS: PULSE 71; O2SAT 99
[2025-02-04 04:08] VITALS: BP 123/74; PULSE 67
[2025-02-04] MEDS: Ibuprofen 600 MG Tablet PO (04:14)
[2025-02-04 07:45] VITALS: BP 114/77; PULSE 75
[2025-02-04 07:49] VITALS: BP 114/77; PULSE 75; RESP 16; TEMP 36.4
--- NOTE | 2025-02-04 08:39 | PCM.PN.OB ---
Subjective Subjective Patient doing well without complaints. Tolerating PO. Ambulating and voiding without difficulty. feeding well. Denies chest pain, shortness of breath, calf pain/swelling, fevers, chills, lightheadedness. Objective Data Objective Data Vital Signs: Vital Signs Temp Pulse Resp BP Pulse Ox O2 Del Method 97.6 F L 75 16 114/77 99 Room Air 02/04/25 07:49 02/04/25 07:49 02/04/25 07:49 02/04/25 07:49 02/04/25 04:07 02/04/25 04:05 Oxygen Delivery Method Room Air Weight: 152 lb 8 oz Body Mass Index (BMI) 27.8 Intake & Output: Intake and Output for Last 24 Hours 02/02/25 02/03/25 02/04/25 23:59 23:59 23:59 Intake Total 5488.33 / 5598.33 2857.5 / 2857.5 Output Total 1650 / 1650 650 / 650 Balance 3838.33 / 3948.33 2207.5 / 2207.5 Lab / Micro Data 02/03/25 15:45 Labs: Laboratory Results - last 24 hr 02/01/25 14:20: Crossmatch See Detail 02/03/25 15:45: Hgb 7.8 L, Hct 23.2 L ROS Constitutional Constitutional: Reports systems reviewed and no addt'l complaints, except as documented Cardiovascular Cardiovascular: Reports systems reviewed and no addt'l complaints, except as documented Respiratory/Chest Respiratory/Chest: Reports systems reviewed and no addt'l complaints, except as documented Gastrointestinal Gastrointestinal: Reports systems reviewed and no addt'l complaints, except as documented Physical Exam Const alert, oriented x3 and no apparent distress HEENT Head and Scalp: atraumatic Resp normal respiratory effort GI soft to palpation and non-tender Bimanual Exam - Vag & Uterus: uterus non-tender Uterus Palpation: uterus fundus firm (below Umbilicus) Assessment & Plan (1) Acute on chronic blood loss anemia: COMMENT: transfuse 1 unit PRBC (2) Intrauterine growth restriction (IUGR) affecting care of mother: (3) hemorrhage: (4) Vaginal delivery: PLAN: Plan s/p PPD # 2 1. routine post delivery care 2. breast feeding- support given 3. rh positive 4. rubella immune
--- NOTE | 2025-02-09 17:36 | NURSING ---
Follow up phone call made, no answer, left voicemail
== END 2025-02-04 11:50 | disposition home or self-care (01) | DRG 806 ==
PROVIDERS: Advanced Practice Midwife; Obstetrics & Gynecology; Admitting Provider Obstetrics & Gynecology; Referring Provider Obstetrics & Gynecology; Visit Provider Obstetrics & Gynecology
DX: O36.5930 Maternal care for other known or suspected poor fetal growth, third trimester, not applicable or unspecified (principal); Z37.0 Single live birth; O99.324 Drug use complicating childbirth; O72.1 Other immediate postpartum hemorrhage; D62 Acute posthemorrhagic anemia; F12.99 Cannabis use, unspecified with unspecified cannabis-induced disorder; O26.843 Uterine size-date discrepancy, third trimester; O99.824 Streptococcus B carrier state complicating childbirth; O99.02 Anemia complicating childbirth; O69.81X0 Labor and delivery complicated by cord around neck, without compression, not applicable or unspecified; O76 Abnormality in fetal heart rate and rhythm complicating labor and delivery; O77.0 Labor and delivery complicated by meconium in amniotic fluid; Z3A.39 39 weeks gestation of pregnancy; Z87.891 Personal history of nicotine dependence
CPT/HCPCS: 59025; 59050; 80307; 85014; 85018; 85025; 85027; 85384; 85610; 85730; 86780; 86850; 86900; 86901; 88307; 99221; P9016; A4216; G0378; J2405